=== PATIENT | female | born 1990 | race Caucasian/White ===

== ENCOUNTER 2017-04-09 01:10 | Emergency (ER) | payer OTHER ==
[~2017-04-09] VITALS: Ht 160 cm; Wt 99.8 kg
[~2017-04-09 01:10] MED LIST: ACET325; AMOX250 PO; AMOX500 PO; ANTOXYBENA RIGHTEAR; AZIT250 PO; Amoxicillin500 MG PO; BENTYL20 MG PO; CORRECTOL; CYCL10 PO; Cleocin HCl150 MG PO; DEXGUASY PO; HYDACE5 PO; HYDACE5325 PO; IBUP600 PO; IBUP800 PO; LORA10ER PO; NAPR500 PO; NEOPOLHCSU LEFTEAR; Naprosyn500 MG PO; ONDA4 PO; ONDA4ODT MM; OXYACE5T PO; PENVK500 PO; PROCODE120 PO; PROM25 PO; PROM25S PR; Percocet 5-3251 EACH PO; RXHYDACE PO; RXOXYACE PO; RXTRAM50 PO; SENNP PO; SULTRIDS PO; TRAM50 PO; Ultram50 MG PO; Veetids 500500 MG PO
[2017-04-09] MEDS ORDERED: ESCI10 PO (01:44)
[2017-04-09 01:55] LABS: BASOPHILS ABSOLUTE AUTO 0.03 K/mm3 (0.00-0.23); BASOPHILS PERCENT AUTO 0 % (0-2); EOSINOPHILS ABSOLUTE AUTO 0.16 K/mm3 (0.00-0.68); EOSINOPHILS PERCENT AUTO 2 % (0-6); Hematocrit 38.2 % (33.0-51.0); Hemoglobin 12.6 g/dL (11.5-16.0); IMMATURE GRAN ABSOLUTE AUTO 0.05 K/mm3 (0.00-0.10); IMMATURE GRAN PERCENT AUTO 1 % (0-1); LYMPHOCYTES PERCENT AUTO 33 % (21-46); MONOCYTES ABSOLUTE AUTO 0.77 K/mm3 (0.16-1.47); MONOCYTES PERCENT AUTO 9 % (4-13); Mean Corpuscular HGB 29.7 pg (26.0-34.0); Mean Corpuscular Volume 90 fL (80-100); Mean Platelet Volume 10.4 fL (9.1-12.4); NEUTROPHILS PERCENT AUTO 56 % (41-73); Platelet Count 262 K/mm3 (150-400); RDW Coefficient Variation 12.2 % (11.7-14.2); RDW Standard Deviation 40.2 fL (35.1-46.3); Red Blood Cell Count 4.24 M/mm3 (3.80-5.20); White Blood Cell Count 8.61 K/mm3 (4.00-11.30)
[2017-04-09 02:11] LABS: Alanine Aminotransfer (ALT/SGP 29 U/L (12-78); Albumin, Blood 3.1 g/dL (3.4-5.0); Albumin/Globulin Ratio 0.7 (0.8-1.8); Alk Phos 101 U/L (50-136); Anion Gap 10 mmol/L (6-16); Aspartate Aminotrans (AST/SGOT 18 U/L (12-37); Bilirubin, Total 0.2 mg/dL (0.1-1.0); Blood Urea Nitrogen 12 mg/dL (8-24); Bun/Creatinine Ratio 17.8 (12.0-20.0); CO2, Blood 25 mmol/L (21-32); Chloride, Blood 103 mmol/L (98-108); Creatinine, Blood 0.67 mg/dL (0.40-1.00); Globulin, Blood 4.3 g/dL (2.2-4.0); Glomerular Filtration Rate >60 (60-); Glucose, Blood 93 mg/dL (70-99); Potassium, Blood 3.7 mmol/L (3.5-5.5); Sodium, Blood 138 mmol/L (136-145); Total Protein, Blood 7.4 g/dL (6.4-8.2)
[2018-01-25] MEDS ORDERED: Prozac40 MG PO (13:17)
[2018-01-25] MEDS ORDERED: Keflex500 MG PO (13:24)
[2018-01-25] MEDS ORDERED: Bactrim Ds Tab1 EACH PO (13:24)
[2018-01-25] MEDS ORDERED: Zofran4 MG PO (21:55)
[2018-01-25] MEDS ORDERED: KETO10 PO (21:55)
== END 2017-04-09 03:37 | disposition home or self-care (01) ==
LOC: ER 01:10
PROVIDERS: Emergency Medicine
DX: R10.11 Right upper quadrant pain (principal); Z88.5 Allergy status to narcotic agent; Z88.8 Allergy status to other drugs, medicaments and biological substances; Z79.899 Other long term (current) drug therapy; I10 Essential (primary) hypertension
CPT/HCPCS: 36415; 80053; 81000; 81025; 83690; 85025; 96374; 96375; 99284; J1170; J2405

== ENCOUNTER → 2021-06-11 | Outpatient (CLI) | payer OTHER ==
[~2021-06-11] MED LIST changes: +Bactrim Ds Tab1 EACH PO; +ESCI10 PO; +KETO10 PO; +Keflex500 MG PO; +Prozac40 MG PO; +Zofran4 MG PO
== END | disposition home or self-care (01) ==
LOC: LAB SHORT 08:15 → LAB 08:15
DX: J02.9 Acute pharyngitis, unspecified (principal)
CPT/HCPCS: 87081; 87147

== ENCOUNTER → 2021-08-24 | Outpatient (CLI) | payer OTHER ==
[2021-08-24 20:09] LABS: Alanine Aminotransfer (ALT/SGP 23 U/L (12-78); Alk Phos 74 U/L (50-136); Aspartate Aminotrans (AST/SGOT 14 U/L (12-37); Bilirubin, Total 0.4 mg/dL (0.1-1.0); Blood Urea Nitrogen 12 mg/dL (8-24); CHOL/HDL RATIO 3.1; CO2, Blood 26 mmol/L (21-32); Calcium, Blood 9.4 mg/dL (8.5-10.1); Chloride, Blood 105 mmol/L (98-108); Cholesterol 169 mg/dL (50-200); Creatinine, Blood 0.71 mg/dL (0.40-1.00); Globulin, Blood 8.2 g/dL (2.2-4.0); Glomerular Filtration Rate 117 (60-); Glucose, Blood 84 mg/dL (70-99); HDL Cholesterol 55 mg/dL (>39); Sodium, Blood 135 mmol/L (136-145); Total Protein, Blood 8.2 g/dL (6.4-8.2); Triglycerides 53 mg/dL (30-140); Very Low Density Lipoprot Chol 10 mg/dL (6-28)
[2021-08-24 20:12] LABS: Anion Gap 4 mmol/L (6-16); LDL/HDL RATIO 1.9; Low Density Lipoprotein Chol 103 mg/dL (0-110)
[2021-08-25 21:07] LABS: TESTOSTERONE, SERUM 57 ng/dL (8-60)
== END | disposition home or self-care (01) ==
LOC: LAB SHORT 16:30 → LAB 16:30
PROVIDERS: Family Medicine
DX: E28.2 Polycystic ovarian syndrome (principal)
CPT/HCPCS: 80053; 80061; 82627; 84145; 84402; 84403; 84443; 84703

== ENCOUNTER → 2021-09-01 | Outpatient (CLI) | payer OTHER | LOC: LAB SHORT 10:37 | DX: R79.89 Other specified abnormal findings of blood chemistry (principal) | CPT/HCPCS: 81050 ==

== ENCOUNTER → 2021-09-25 | Outpatient (CLI) | payer OTHER ==
[2021-09-27 19:06] LABS: IMMUNOGLOBULIN A, QN, SERUM 416 mg/dL (87-352); T-TRANSGLUTAMINASE (TTG) IGA <2 U/mL (0-3); T-TRANSGLUTAMINASE (TTG) IGG <2 U/mL (0-5)
== END | disposition home or self-care (01) ==
LOC: LAB SHORT 16:15 → LAB 16:15
PROVIDERS: Family Medicine
DX: K90.0 Celiac disease (principal)
CPT/HCPCS: 82784; 83516; 86258; 86364

== ENCOUNTER → 2021-12-12 | Outpatient (CLI) | payer OTHER | END | disposition home or self-care (01) | LOC: LAB SHORT 10:15 → LAB 10:15 | DX: N39.0 Urinary tract infection, site not specified (principal) | CPT/HCPCS: 87086 ==

== ENCOUNTER 2022-06-10 09:08 | Day surgery (SDC) | payer OTHER ==
[~2022-06-10] VITALS: Ht 162.6 cm; Wt 80.2 kg
[2022-06-10] MEDS ORDERED: OMEP20ER (09:52)
[2022-06-10] MEDS ORDERED: Bupropion HCl75 MG (09:53)
== END 2022-06-10 11:47 | disposition home or self-care (01) ==
LOC: ORSCSDS 09:08
PROVIDERS: Internal Medicine Gastroenterology
PROC: 0DB98ZX Excision of Duodenum, Via Natural or Artificial Opening Endoscopic, Diagnostic (ICD-10-PCS; principal; 2022-06-10 10:30)
PROC: 0DBN8ZX Excision of Sigmoid Colon, Via Natural or Artificial Opening Endoscopic, Diagnostic (ICD-10-PCS; principal; 2022-06-10 10:30)
PROC: 0DB68ZX Excision of Stomach, Via Natural or Artificial Opening Endoscopic, Diagnostic (ICD-10-PCS; principal; 2022-06-10 10:30)
DX: K62.5 Hemorrhage of anus and rectum (principal); K59.00 Constipation, unspecified; R11.2 Nausea with vomiting, unspecified; K30 Functional dyspepsia; R10.9 Unspecified abdominal pain; K63.5 Polyp of colon; K64.8 Other hemorrhoids; Z79.899 Other long term (current) drug therapy
CPT/HCPCS: 88305; 88342; J2250; J2704; J7120

== ENCOUNTER 2023-03-09 06:33 | Emergency (ER) | payer OTHER ==
[~2023-03-09] VITALS: Ht 160 cm; Wt 63.5 kg
[~2023-03-09 06:33] MED LIST changes: +Bupropion HCl75 MG; +OMEP20ER
[2023-03-09 06:41] VITALS: BP 141/98
[2023-03-09 07:19] LABS: BASOPHILS ABSOLUTE AUTO 0.03 K/mm3 (0.00-0.23); BASOPHILS PERCENT AUTO 0 % (0-2); EOSINOPHILS ABSOLUTE AUTO 0.19 K/mm3 (0.00-0.68); EOSINOPHILS PERCENT AUTO 3 % (0-6); Hematocrit 38.8 % (33.0-51.0); Hemoglobin 13.6 g/dL (11.5-16.0); IMMATURE GRAN ABSOLUTE AUTO 0.02 K/mm3 (0.00-0.10); IMMATURE GRAN PERCENT AUTO 0 % (0-1); LYMPHOCYTES ABSOLUTE AUTO 2.25 K/mm3 (0.84-5.20); LYMPHOCYTES PERCENT AUTO 31 % (21-46); MONOCYTES ABSOLUTE AUTO 0.58 K/mm3 (0.16-1.47); MONOCYTES PERCENT AUTO 8 % (4-13); Mean Corpuscular HGB 32.1 pg (26.0-34.0); Mean Corpuscular HGB Conc 35.1 g/dL (31.5-36.5); Mean Corpuscular Volume 92 fL (80-100); Mean Platelet Volume 10.4 fL (9.1-12.4); NEUTROPHILS ABSOLUTE AUTO 4.09 K/mm3 (1.96-9.15); NEUTROPHILS PERCENT AUTO 57 % (41-73); Platelet Count 305 K/mm3 (150-400); Red Blood Cell Count 4.24 M/mm3 (3.80-5.20); White Blood Cell Count 7.16 K/mm3 (4.00-11.30)
[2023-03-09 07:46] LABS: Albumin, Blood 3.7 g/dL (3.4-5.0); Bilirubin, Total 0.3 mg/dL (0.1-1.0); Bun/Creatinine Ratio 15.2 (12.0-20.0); Calcium, Blood 8.5 mg/dL (8.5-10.1); Creatinine, Blood 0.85 mg/dL (0.40-1.00); Globulin, Blood 3.7 g/dL (2.2-4.0); Potassium, Blood 3.3 mmol/L (3.5-5.5); Total Protein, Blood 7.4 g/dL (6.4-8.2)
== END 2023-03-09 07:30 | disposition left against medical advice (07) ==
LOC: ER 06:33
PROVIDERS: Student in an Organized Health Care Education/Training Program
DX: R07.89 Other chest pain (principal); Z53.29 Procedure and treatment not carried out because of patient's decision for other reasons; R00.0 Tachycardia, unspecified; R06.02 Shortness of breath; I10 Essential (primary) hypertension; F41.9 Anxiety disorder, unspecified; F41.0 Panic disorder [episodic paroxysmal anxiety]; F32.A Depression, unspecified; Z79.899 Other long term (current) drug therapy; Z88.5 Allergy status to narcotic agent; Z88.8 Allergy status to other drugs, medicaments and biological substances
CPT/HCPCS: 71046; 80053; 83735; 84484; 85025; 93005; 93010; 99285-25